=== PATIENT | male | born 1945 | race Caucasian/White ===

== ENCOUNTER 2023-05-16 10:21 | Emergency (ER) | payer OTHER, SELFPAY ==
[2023-05-16 10:29] VITALS: BP 132/65
[2023-05-16 10:54] VITALS: BMI 27.2
[2023-05-16 11:07] LABS: Glucose - Point of Care 126 mg/dl (70-99)
[2023-05-16 11:12] LABS: % Basophils 0.4 % (0-2); % Eosinophils 1.5 % (0-6); % Immature Granulocytes 0.3 % (0-0.5); % Lymphocytes 7.1 % (20.5-51.1); % Neutrophils 83.7 % (42.2-75.2); Absolute Basophils 0.1 10^3/uL (0-0.2); Absolute Eosinophils 0.2 10^3/uL (0-0.7); Hematocrit 36.8 % (39.0-52.0); Hemoglobin 12.3 g/dL (13.0-18.0); Mean Corp Hgb Conc. 33.4 g/dL (33.0-37.0); Mean Corpuscular Hgb 28.9 pg (27.0-31.0); Mean Corpuscular Volume 86.6 fL (80.0-94.0); Mean Platelet Volume 9.9 fL (7.4-10.4); Nucleated Red Blood Cells % 0 % (-); Platelet Count 217 10^3/uL (130-400); Red Blood Cell Count 4.25 10^6/uL (4.70-6.10); Red Cell Dist. Width 13.8 % (11.5-14.5); White Blood Cell Count 14.4 10^3/uL (4.8-10.8)
[2023-05-16] MEDS: NSS 500 IV (11:13)
[2023-05-16 11:23] LABS: ALT (SGPT) 22 U/L (0-50); AST (SGOT) 25 U/L (17-59); Albumin 3.7 g/dl (3.5-5.0); Alkaline Phosphatase 64 U/L (38-126); Blood Urea Nitrogen 14 mg/dl (9-20); Calcium 9.2 mg/dl (8.4-10.2); Carbon Dioxide 26 mmol/L (22-30); Chloride 108 mmol/L (98-107); Estimated Creatinine Clearance 84 ml/min; Glucose 115 mg/dl (70-99); Magnesium 1.8 mg/dl (1.6-2.3); Potassium 4.1 mmol/L (3.5-5.1); Sodium 138 mmol/L (135-145); Total Bilirubin 0.8 mg/dl (0.2-1.3); eGFR > 60.00
[2023-05-16 11:34] LABS: NT-proBNP 400 pg/ml; Troponin I < 0.012 ng/ml
[2023-05-16 12:26] VITALS: BP 135/62
[2023-05-16 13:00] VITALS: BP 144/72
--- NOTE | 2023-05-16 13:03 | ED.GENMED ---
History of Present Illness
<Flakito Carrington Jr., PA-C - Last Filed: 05/16/23 14:24>
General
Chief Complaint: Chest Pain
Source: patient
Exam Limitations: none
Time Seen by Provider: 05/16/23 10:35
Nursing documentation reviewed up to this point in time: agreed with
Travel History
Have you had any contact with someone who has COVID-19?: No
Do you have any symptoms of coronavirus? Fever > 100 degrees, chills, cough, shortness of breath, sore throat, loss of taste or smell, muscle aches, or headache?: No
History of Present Illness
History of Present Illness:
77-year-old male presenting to the emergency department today with concerns of central chest pain that started last night roughly 5 hours prior to arrival to the emergency department. Hurts worse with deep breaths no radiation no associated
shortness of breath no nausea vomiting diaphoresis. Denies similar symptoms in the past.
Past History
<Flakito Carrington Jr., PA-C - Last Filed: 05/16/23 14:24>
Past History
ED Past Medical History: HTN
ED Past Surgical History: Bowel resection (Tumor CA) and Orthopedic (Left hip replacement)
Social History
Tobacco: Non-smoker
Alcohol: Occasional
Personal: Single
Living: alone
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
Review of Systems
<Flakito Carrington Jr., PA-C - Last Filed: 05/16/23 14:24>
Review of Systems
Allergies reviewed?: Yes
All Other Systems: ROS reviewed and negative except as documented in HPI and ROS
Phy Exam
<Flakito Carrington Jr., PA-C - Last Filed: 05/16/23 14:24>
Physical Exam
Physical Exam:
GENERAL: Alert , in no apparent distress
EYE: pupils equal and reactive
NECK: Supple, no significant adenopathy.
ENT: o/p clr, mmm.
CARDIAC: Regular rate and rhythm .
LUNGS: Clear breath sounds bilaterally, no acute respiratory distress, no wheezes/rales/rhonchi
ABDOMEN: Soft, without focal tenderness, no r/g, no cvat
NEUROLOGICAL: Alert and oriented, no focal neuro deficits
SKIN: Warm and dry, skin intact.
MUSCULOSKELETAL: No edema, well perfused.
PSYCH: Normal and appropriate interaction.
Scores
<Flakito Carrington Jr., PA-C - Last Filed: 05/16/23 14:24>
Heart Score for Chest Pain Patients
STEMI patient?: No
History: Slightly or Non-Suspicious
ECG: Nonspecific Repolarization
Age: >/= 65 years
Risk Factors: 1 or 2 Risk Factors
Troponin: </= Normal Limit
Heart Score for Chest Pain Patients: 4
Heart Score Risk: 20.3% MACE over next 6 weeks
<Remi Hernandes DO - Last Filed: 05/16/23 14:27>
Heart Score for Chest Pain Patients
Heart Score for Chest Pain Patients: 4
Heart Score Risk: 20.3% MACE over next 6 weeks
Course
<Flakito Carrington Jr., PA-C - Last Filed: 05/16/23 14:24>
Orders/Labs/Results
Orders:
Orders
05/16/23 10:25
EKG [Electrocardiogram (*1)] Urgent
Reason for Study: Chest Pain
EKG- Treatment ONCE
05/16/23 11:00
CR Chest - 2 Views Urgent
Comment:
Reason For Exam: cp
05/16/23 11:01
Cardiac Monitoring- Treatment ONCE
05/16/23 11:02
Complete Blood Count/With Diff Urgent
Comprehensive Metabolic Panel Urgent
D-Dimer Urgent
Magnesium Urgent
NT-proBNP Urgent
Troponin I Urgent
05/16/23 11:11
0.9% Sodium Chloride 500 ml [Nss] 500 ml IV BOLUS
05/16/23 13:03
EKG [Electrocardiogram (*1)] Urgent
Reason for Study: Chest Pain
EKG- Treatment ONCE
05/16/23 13:18
Troponin I Urgent
Abnormal Lab Results
05/16/23 05/16/23
11:02 11:06
WBC 14.4 H 10^3/uL
(4.8-10.8)
RBC 4.25 L 10^6/uL
(4.70-6.10)
Hgb 12.3 L g/dL
(13.0-18.0)
Hct 36.8 L %
(39.0-52.0)
Absolute Neuts (auto) 12.0 H 10^3/uL
(1.4-6.5)
Absolute Lymphs (auto) 1.0 L 10^3/uL
(1.2-3.4)
Absolute Monos (auto) 1.0 H 10^3/uL
(0.1-0.6)
Neutrophils % 83.7 H %
(42.2-75.2)
Lymphocytes % 7.1 L %
(20.5-51.1)
D-Dimer 0.60 H ug/mlFEU
(0.00-0.50)
Chloride 108 H mmol/L
(98-107)
Glucose 115 H mg/dl
(70-99)
Total Protein 6.0 L g/dl
(6.3-8.2)
POC Glucose 126 H mg/dl
(70-99)
05/16/23 11:02
05/16/23 11:02
Vital Signs
Initial and Last Documented VS:
Initial Vital Signs
Temp Pulse Resp BP Pulse Ox
98.7 F 60 18 132/65 96
05/16/23 10:29 05/16/23 10:29 05/16/23 10:29 05/16/23 10:29 05/16/23 10:29
Last Documented Vital Signs
Temp Pulse Resp BP Pulse Ox
98.7 F 66 23 144/72 95
05/16/23 10:29 05/16/23 13:15 05/16/23 13:15 05/16/23 13:00 05/16/23 10:54
Paolalt;Remi Hernandes DO - Last Filed: 05/16/23 14:27>
Orders/Labs/Results
Orders:
Orders
05/16/23 10:25
EKG [Electrocardiogram (*1)] Urgent
Reason for Study: Chest Pain
EKG- Treatment ONCE
05/16/23 11:00
CR Chest - 2 Views Urgent
Comment:
Reason For Exam: cp
05/16/23 11:01
Cardiac Monitoring- Treatment ONCE
05/16/23 11:02
Complete Blood Count/With Diff Urgent
Comprehensive Metabolic Panel Urgent
D-Dimer Urgent
Magnesium Urgent
NT-proBNP Urgent
Troponin I Urgent
05/16/23 11:11
0.9% Sodium Chloride 500 ml [Nss] 500 ml IV BOLUS
05/16/23 13:03
EKG [Electrocardiogram (*1)] Urgent
Reason for Study: Chest Pain
EKG- Treatment ONCE
05/16/23 13:18
Troponin I Urgent
Abnormal Lab Results
05/16/23 05/16/23
11:02 11:06
WBC 14.4 H 10^3/uL
(4.8-10.8)
RBC 4.25 L 10^6/uL
(4.70-6.10)
Hgb 12.3 L g/dL
(13.0-18.0)
Hct 36.8 L %
(39.0-52.0)
Absolute Neuts (auto) 12.0 H 10^3/uL
(1.4-6.5)
Absolute Lymphs (auto) 1.0 L 10^3/uL
(1.2-3.4)
Absolute Monos (auto) 1.0 H 10^3/uL
(0.1-0.6)
Neutrophils % 83.7 H %
(42.2-75.2)
Lymphocytes % 7.1 L %
(20.5-51.1)
D-Dimer 0.60 H ug/mlFEU
(0.00-0.50)
Chloride 108 H mmol/L
(98-107)
Glucose 115 H mg/dl
(70-99)
Total Protein 6.0 L g/dl
(6.3-8.2)
POC Glucose 126 H mg/dl
(70-99)
05/16/23 11:02
05/16/23 11:02
Vital Signs
Initial and Last Documented VS:
Initial Vital Signs
Temp Pulse Resp BP Pulse Ox
98.7 F 60 18 132/65 96
05/16/23 10:29 05/16/23 10:29 05/16/23 10:29 05/16/23 10:29 05/16/23 10:29
Last Documented Vital Signs
Temp Pulse Resp BP Pulse Ox
98.7 F 66 23 144/72 95
05/16/23 10:29 05/16/23 13:15 05/16/23 13:15 05/16/23 13:00 05/16/23 10:54
<Flakito Carrington Jr., PA-C - Last Filed: 05/16/23 14:24>
MDM/Problems Addressed
MDM/Problems Addressed:
77-year-old male presenting to the emergency department today with concerns of midsternal chest discomfort starting overnight last night roughly 5 hours prior to arrival to the emergency department. No radiation of discomfort no nausea vomiting
diaphoresis no exertional component no shortness of breath. Does have some increased discomfort with deep breaths. Upon arrival here vital signs are normal. White count is very slightly elevated at 14.4. Dimer elevated to 0.60 but with
age-adjusted levels this is a negative level. Troponin negative EKG is unchanged from previous. Chest x-ray without emergent findings. Patient appears very low risk for ACS at this time very low risk for PE as well. No evidence of aortic
widening on chest x-ray. Patient generally well-appearing no acute distress throughout ER stay. Patient appears stable for follow-up with cardiology otherwise given strict return precautions for any worsening symptoms.
<Flakito Carrington Jr., PA-C - Last Filed: 05/16/23 14:24>
*Critical Care Note
Total Time (30-74mins, 75-104mins- exclusive of procedures): Not Applicable
ED Attending Note
<Flakito Carrington Jr., PA-C - Last Filed: 05/16/23 14:24>
-
Portions of this chart may have been created with voice recognition software.� Occasional wrong word or��sound alike� substitutions may have occurred due to the inherent limitations of voice recognition software.
<Remi Hernandes DO - Last Filed: 05/16/23 14:27>
ED Attending Note
Patient seen and examined by attending physician: Yes
I performed the substantive portion of visit, reviewed & personally made and approve the management plan that is documented in note by myself or MARIO.: Yes
ED Attending Note:
I agree with Ed's note
Patient awoke with chest pain early this morning. Pains been constant since then. No associated shortness of breath, diaphoresis, nausea. No radiation of the discomfort. Patient has no known coronary artery disease. No trauma. No recent travel.
General: Awake, Alert, Oriented X3. No acute distress.
Vitals: unremarkable
Head: Atraumatic
Eyes: Pupils equal, EOMI
Throat: Airway intact, no exudates
Neck: Trachea midline
Lungs: Clear and equal b/l
Heart: Regular rate, no murmurs
Abd: Soft, Nontender, No pulsatile mass
Neuro: Nonfocal
Skin: Warm, dry, no rash
Extremities: pulses equal b/l, no edema
EKG: Sinus bradycardia with nonspecific lateral changes but unchanged from previous EKG.
Patient has vague chest pain. Troponin is negative x 2. EKG x 2 showed no ischemic changes. They are not normal but there not any different than previous EKG. Patient stable for discharge home and follow-up with cardiology. Patient will be put
on the chest pain outlined.
Discharge Plan
Departure
Patient Disposition: Home (Routine Discharge)
Date of Disposition: 05/16/23
Time of Disposition: 14:22
Patient with high blood pressure during this ER visit?: No
Condition: Good
Covid-19: Not Applicable
Discharge Problem:
Chest pain
Instructions: Chest Pain CBC Follow Up
Prescriptions:
No Action
cyanocobalamin (vitamin B-12) 1,000 MCG tablet
1,000 mcg PO DAILY
finasteride 5 MG tablet
5 mg PO HS
rosuvastatin 5 MG tablet
5 mg PO DAILY
duloxetine 60 mg Capsule,Delayed Release(Dr/Ec)
60 mg PO HS
vitamin E
1 tab PO DAILY
pantoprazole 40 MG tablet,delayed release (DR/EC)
40 mg PO HS
ferrous sulfate [FeroSul] 325 MG tablet
325 mg PO DAILY
latanoprost 0.005 % Drops
1 drp BOTH EYES HS
acetaminophen [Tylenol 8 Hour] 650 mg Tablet Extended Release
1,300 mg PO Q8HPRN PRN (Reason: mild pain)
metoprolol succinate 25 mg Tablet Extended Release 24 Hr
25 mg PO BID
azelastine 137 mcg (0.1 %) Aerosol,[place]
2 spray INTRANASAL BID PRN (Reason: rhinitis)
fluticasone propionate 50 mcg/actuation [place],Suspension
2 spray INTRANASAL DAILY PRN (Reason: rhinitis)
aspirin 81 MG tablet,delayed release (DR/EC)
81 mg PO HS
Referrals:
Terence Dorado DO [Family Provider] -
Activity Restrictions/Additional Instructions:
You came to emergency department today with concerns of chest discomfort. Here you had a reassuring evaluation. Please follow closely with your cardiology team. Return to the emergency department for any worsening, new or concerning symptoms.
Interventions
Interventions:
*Risk Screen - Suicide Last Done: 05/16/23 10:30
*General Assessment Last Done: 05/16/23 10:30
*Neglect/Abuse Screening Last Done: 05/16/23 10:30
ED- Fall Risk Assessment Last Done: 05/16/23 10:54
*ED COVID-19 Vaccine History Last Done: 05/16/23 10:54
ED- Cardiac Assessment Last Done: 05/16/23 10:54
Discharge Date and Time
Print Language: AMHARIC
[2023-05-16 13:48] LABS: Troponin I < 0.012 ng/ml
[2023-05-16 14:00] VITALS: BP 135/80
== END 2023-05-16 14:40 | disposition home or self-care (01) ==
LOC: EMR 10:21
PROVIDERS: Physician Assistant; EMERGENCY PHYSICIAN Emergency Medicine; FAMILY PHYSICIAN Family Medicine
DX: R07.89 Other chest pain (principal)
CPT/HCPCS: 99285; 96360; 71046; 80053; 82962; 83735; 83880; 84484; 85025; 85379; 93005

== ENCOUNTER → 2023-05-22 13:15 | Outpatient (REF) | payer OTHER, SELFPAY | LOC: DHCBC MAIN 13:15 | PROVIDERS: ATTENDING PHYSICIAN Internal Medicine Cardiovascular Disease; FAMILY PHYSICIAN Internal Medicine | DX: R06.02 Shortness of breath (principal); I48.91 Unspecified atrial fibrillation | CPT/HCPCS: 93306 ==

== ENCOUNTER → 2023-05-23 08:56 | Outpatient (REF) | payer OTHER, SELFPAY | LOC: RCS 08:56 | PROVIDERS: ATTENDING PHYSICIAN Internal Medicine Cardiovascular Disease; FAMILY PHYSICIAN Family Medicine | DX: I48.91 Unspecified atrial fibrillation (principal) | CPT/HCPCS: 93005 ==

== ENCOUNTER 2023-05-25 13:56 | Emergency (ER) | payer OTHER, SELFPAY ==
[2023-05-25 14:01] VITALS: BP 132/80
[2023-05-25 14:41] VITALS: BP 151/95
--- NOTE | 2023-05-25 14:50 | ED.GENMED ---
History of Present Illness
General
Chief Complaint: Chest Pain
Source: patient
Exam Limitations: none
Time Seen by Provider: 05/25/23 14:37
Travel History
Have you had any contact with someone who has COVID-19?: No
Do you have any symptoms of coronavirus? Fever > 100 degrees, chills, cough, shortness of breath, sore throat, loss of taste or smell, muscle aches, or headache?: No
History of Present Illness
History of Present Illness:
See MDM
Past History
Past History
ED Past Medical History: Arrthythmia and HTN
ED Past Surgical History: Bowel resection (Tumor CA) and Orthopedic (Left hip replacement)
Social History
Tobacco: Non-smoker
Alcohol: Occasional
Personal: Single
Living: alone
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
Phy Exam
Physical Exam
Physical Exam:
See MDM
Scores
Heart Score for Chest Pain Patients
STEMI patient?: No
History: Slightly or Non-Suspicious
ECG: Normal
Age: >/= 65 years
Risk Factors: 1 or 2 Risk Factors
Troponin: </= Normal Limit
Heart Score for Chest Pain Patients: 3
Heart Score Risk: 2.5% MACE over next 6 weeks
Course
Orders/Labs/Results
Orders:
Orders
05/25/23 14:04
ECG [Electrocardiogram (*1)] Urgent
Reason for Study: Chest Pain
EKG- Treatment ONCE
05/25/23 14:46
Complete Blood Count/With Diff Urgent
Comprehensive Metabolic Panel Urgent
Troponin I Urgent
05/25/23 14:50
CT Chest Pe Study Urgent
Comment:
Reason For Exam: SOB, chest pain
0.9% Sodium Chloride 1000 ml [Nss] 1,000 ml IV BOLUS
05/25/23 17:07
Amoxicillin 875 mg/Clav 125 mg [Augmentin 875 mg/125 mg] 1 tablet PO NOW STA
Furosemide [Lasix] 20 mg PO NOW STA
Abnormal Lab Results
05/25/23
14:46
WBC 11.2 H 10^3/uL
(4.8-10.8)
RBC 3.91 L 10^6/uL
(4.70-6.10)
Hgb 11.4 L g/dL
(13.0-18.0)
Hct 34.1 L %
(39.0-52.0)
Absolute Neuts (auto) 9.2 H 10^3/uL
(1.4-6.5)
Absolute Lymphs (auto) 0.8 L 10^3/uL
(1.2-3.4)
Absolute Monos (auto) 0.9 H 10^3/uL
(0.1-0.6)
Neutrophils % 83.0 H %
(42.2-75.2)
Lymphocytes % 7.4 L %
(20.5-51.1)
Chloride 108 H mmol/L
(98-107)
Glucose 118 H mg/dl
(70-99)
Total Protein 6.1 L g/dl
(6.3-8.2)
05/25/23 14:46
05/25/23 14:46
Vital Signs
Initial and Last Documented VS:
Initial Vital Signs
Temp Pulse Resp BP Pulse Ox
98.5 F 98 20 132/80 95
05/25/23 14:01 05/25/23 14:01 05/25/23 14:01 05/25/23 14:01 05/25/23 14:01
Last Documented Vital Signs
Temp Pulse Resp BP Pulse Ox
98.5 F 106 17 175/107 96
05/25/23 14:01 05/25/23 16:16 05/25/23 16:16 05/25/23 17:01 05/25/23 15:45
MDM/Problems Addressed
Differential Diagnosis Includes:
HPI and MDM Narrative:
77-year-old male presenting with persistent chest pain and shortness of breath. He was seen over a week ago and diagnosed with A-fib. He is now on Eliquis. He follows with cardiology Dr. Castillo. He states that his symptoms are somewhat random
and sometimes worse with exertion. He also complains of dry mouth and dehydration.
Given his ongoing symptoms, will obtain CT to rule out PE versus dissection etiology. We did discuss that his symptoms could be related to A-fib but he is not a cardioversion candidate given that he has only been on Eliquis for less than 2 weeks.
We discussed the possibility of a negative workup in which we would blame his symptoms on A-fib. We discussed then talking to cardiology for possible admission for [facility] and cardioversion. Patient acknowledges this but states he has too many
responsibilities at home to be admitted
Physical exam
General: Well appearing and non-toxic
HEENT: protecting airway. Dry mucous membranes
Neck: appears supple
CV: No evidence of cyanosis. Normal rate, irregular rhythm
Resp: No accessory muscle use. Lungs clear
Abd: Non-distended
Extremities: No deformities
Neuro: alert
Psych: Normal affect
Skin: Intact
Problems Addressed including Acute and Chronic Conditions affecting care:
1. Intermittent chest pain
Acuity: acute
Prognosis: stable
Details: Likely in the setting of his A-fib. Given the recurrence, will repeat troponin and will obtain CT PE
2. A-fib
Acuity: acute
Prognosis: stable
Details: Will give IV fluids and continue to reassess. He is already on anticoagulation
Updates
CT negative for PE. There is concern for small pleural effusions and possible pneumonia. Given the elevated white blood cell count and his concern for worsening cough, will start Augmentin. Will start oral Lasix. I given offered and suggested
admission but patient wants to deliver his Saturday masses tomorrow. He will return Saturday or Saturday if symptoms are persistent
Differential Diagnosis (but not limited to): PE, symptomatic A-fib, aortic dissection
Testing considered: D-dimer but this was already performed last
Drug therapy (if applicable): OTC meds, please see d/c instruction regarding Rx drugs
Amount and/or Complexity of Data Reviewed
Clinical info obtained from: Patient
External data reviewed: Normal age-related D-dimer last week
Labs I independently reviewed (but not limited to): Mild leukocytosis, troponin negative
Radiology: The CT scan was personally and independently reviewed. In addition, official CT report reviewed.
Pulse Ox: not hypoxic
EKG independently reviewed: A-fib, normal axis, no STEMI
Bottle Capper: A-fib
Critical Care: N/A
Risk of Complication:
Social Determinants of health: Good social support
Discussed with other providers: N/A
Escalation of Care includes Admit/Obs: After being observed in the Emergency Department, pt stable for discharge.
Occasional wrong word or 'sound a like' substitutions may have occurred due to the inherent limitations of voice recognition software. Read the chart carefully and recognize, using context, where substitutions have occurred.
*Critical Care Note
Total Time (30-74mins, 75-104mins- exclusive of procedures): Not Applicable
ED Attending Note
-
Portions of this chart may have been created with voice recognition software.� Occasional wrong word or��sound alike� substitutions may have occurred due to the inherent limitations of voice recognition software.
Discharge Plan
Departure
Patient Disposition: Home (Routine Discharge)
Date of Disposition: 05/25/23
Time of Disposition: 17:14
Patient with high blood pressure during this ER visit?: Yes
Discharge Problem:
A-fib, Pleural effusion, PNA (pneumonia)
Instructions: BLOOD PRESSURE
Prescriptions:
New
amoxicillin-pot clavulanate 875-125 mg tablet
1 tab PO BID Qty: 14 0RF
furosemide [Lasix] 20 mg tablet
20 mg PO DAILY Qty: 5 0RF
No Action
cyanocobalamin (vitamin B-12) 1,000 MCG tablet
1,000 mcg PO DAILY
finasteride 5 MG tablet
5 mg PO HS
rosuvastatin 5 MG tablet
5 mg PO DAILY
duloxetine 60 mg Capsule,Delayed Release(Dr/Ec)
60 mg PO HS
vitamin E
1 tab PO DAILY
pantoprazole 40 MG tablet,delayed release (DR/EC)
40 mg PO HS
ferrous sulfate [FeroSul] 325 MG tablet
325 mg PO DAILY
latanoprost 0.005 % Drops
1 drp BOTH EYES HS
acetaminophen [Tylenol 8 Hour] 650 mg Tablet Extended Release
1,300 mg PO Q8HPRN PRN (Reason: mild pain)
metoprolol succinate 25 mg Tablet Extended Release 24 Hr
25 mg PO BID
azelastine 137 mcg (0.1 %) Aerosol,[place]
2 spray INTRANASAL BID PRN (Reason: rhinitis)
fluticasone propionate 50 mcg/actuation [place],Suspension
2 spray INTRANASAL DAILY PRN (Reason: rhinitis)
aspirin 81 MG tablet,delayed release (DR/EC)
81 mg PO HS
Referrals:
Terence Dorado DO [Family Provider] -
Activity Restrictions/Additional Instructions:
Please return for any worsening symptoms.
You may return at any time if you have further concerns.
Please follow up with your doctor at the first available appointment, preferably this week.
Thank you for choosing [facility].
Interventions
Interventions:
*ED COVID-19 Vaccine History Last Done: 05/25/23 14:01
ED- Cardiac Assessment Last Done: 05/25/23 14:38
Discharge Date and Time
Print Language: BENGALI
[2023-05-25] MEDS: NSS 1000 IV (14:52)
[2023-05-25 14:58] LABS: % Basophils 0.5 % (0-2); % Eosinophils 0.4 % (0-6); % Immature Granulocytes 0.3 % (0-0.5); % Lymphocytes 7.4 % (20.5-51.1); % Monocytes 8.4 % (1.7-9.3); Absolute Basophils 0.1 10^3/uL (0-0.2); Absolute Eosinophils 0.1 10^3/uL (0-0.7); Absolute Lymphocytes 0.8 10^3/uL (1.2-3.4); Absolute Monocytes 0.9 10^3/uL (0.1-0.6); Absolute Neutrophils 9.2 10^3/uL (1.4-6.5); Hematocrit 34.1 % (39.0-52.0); Hemoglobin 11.4 g/dL (13.0-18.0); Mean Corp Hgb Conc. 33.4 g/dL (33.0-37.0); Mean Corpuscular Hgb 29.2 pg (27.0-31.0); Mean Corpuscular Volume 87.2 fL (80.0-94.0); Mean Platelet Volume 9.2 fL (7.4-10.4); Nucleated Red Blood Cells % 0 % (-); Platelet Count 291 10^3/uL (130-400); Red Blood Cell Count 3.91 10^6/uL (4.70-6.10); Red Cell Dist. Width 13.7 % (11.5-14.5); White Blood Cell Count 11.2 10^3/uL (4.8-10.8)
[2023-05-25 15:00] VITALS: BP 167/96
[2023-05-25 15:36] LABS: ALT (SGPT) 34 U/L (0-50); AST (SGOT) 27 U/L (17-59); Albumin 3.6 g/dl (3.5-5.0); Alkaline Phosphatase 75 U/L (38-126); Blood Urea Nitrogen 17 mg/dl (9-20); Calcium 9.3 mg/dl (8.4-10.2); Carbon Dioxide 26 mmol/L (22-30); Chloride 108 mmol/L (98-107); Glucose 118 mg/dl (70-99); Potassium 4.4 mmol/L (3.5-5.1); Sodium 138 mmol/L (135-145); Total Bilirubin 0.8 mg/dl (0.2-1.3); Total Protein 6.1 g/dl (6.3-8.2); eGFR > 60.00
[2023-05-25 15:43] LABS: Troponin I < 0.012 ng/ml
[2023-05-25 16:00] VITALS: BP 179/107
[2023-05-25 17:01] VITALS: BP 175/107
[2023-05-25] MEDS: LASIX 20 MG PO (17:10)
[2023-05-25] MEDS: AUGMENTIN 875 MG/125 MG 1 TABLET PO (17:10)
== END 2023-05-25 17:35 | disposition home or self-care (01) ==
LOC: EMR 13:56
PROVIDERS: EMERGENCY PHYSICIAN Student in an Organized Health Care Education/Training Program; FAMILY PHYSICIAN Family Medicine
DX: I48.91 Unspecified atrial fibrillation (principal); J90 Pleural effusion, not elsewhere classified; J18.9 Pneumonia, unspecified organism; I10 Essential (primary) hypertension; Z79.01 Long term (current) use of anticoagulants
CPT/HCPCS: 99285; 96360; 71275; 80053; 84484; 85025; 93005; Q9967

== ENCOUNTER → 2023-05-31 11:01 | Outpatient (REF) | payer OTHER, SELFPAY | LOC: DHCBC/DCA 11:01 | PROVIDERS: ATTENDING PHYSICIAN Internal Medicine Cardiovascular Disease; FAMILY PHYSICIAN Family Medicine | DX: R07.89 Other chest pain (principal); I48.91 Unspecified atrial fibrillation | CPT/HCPCS: 78452; 93017; A9500; J2785 ==

== ENCOUNTER → 2023-07-30 | Outpatient (REF) | payer OTHER, SELFPAY | LOC: DHSLP | PROVIDERS: ATTENDING PHYSICIAN Internal Medicine; FAMILY PHYSICIAN Family Medicine | DX: G47.33 Obstructive sleep apnea (adult) (pediatric) (principal) | CPT/HCPCS: 95800 ==

== ENCOUNTER → 2023-08-12 09:49 | Outpatient (REF) | payer OTHER, SELFPAY | LOC: RAD 09:49 | PROVIDERS: ATTENDING PHYSICIAN Surgery Vascular Surgery; FAMILY PHYSICIAN Family Medicine | DX: I65.23 Occlusion and stenosis of bilateral carotid arteries (principal) | CPT/HCPCS: 93880 ==

== ENCOUNTER 2023-11-23 10:39 | Emergency (ER) | payer OTHER, SELFPAY ==
[2023-11-23 10:42] VITALS: BP 139/81
--- NOTE | 2023-11-23 11:00 | EDRN ---
Mackenzie Cesar [employer] SAL[employer] AGENT in to see pt at this time.
--- NOTE | 2023-11-23 11:05 | ED.MUSCINJ ---
HPI-Injury
General
Chief Complaint: Musculo-Skeletal Complaint
Source: patient
Exam Limitations: none
Time Seen by Provider: 11/23/23 10:59
Nursing documentation reviewed up to this point in time: agreed with
History of Present Illness-Injury
Initial Injury comments:
77 yo male with h/o a fib on Eliquis, HLD, TURP and , Fe deficient anemia, colon CA with resection 2006, presents 6 days after a fall with right rib pain. He was walking down a grassy slope with his dog, tripped over raise in the ground where
grass met the asphalt and landed with right elbow flexed and arm across his chest. The right ribs have become increasingly more painful since. Denies SOB, it hurts to breathe. Did hit forehead and has a mild abrasion mid upper forehead that is
healing well. No hx LOC, denies H/A, change in vision, weakness, numbness/tingling in extremities.
Past History
Past History
ED Past Medical History: Arrthythmia, HTN, Hypercholesterolemia and Other (seasonal allergies which causes him to cough causing significant right rib pain)
ED Past Surgical History: Bowel resection (Tumor CA), Orthopedic (Left hip replacement) and Urological
Social History
Tobacco: Non-smoker
Alcohol: Occasional
Personal: Single
Living: alone
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
Review of Systems
Review of Systems
Allergies reviewed?: Yes
All Other Systems: ROS reviewed and negative except as documented in HPI and ROS
Constitutional: Denies fever
Respiratory: Reports cough (due to allergies) and trouble breathing
Cardiac: Denies syncope
ABD/GI: Denies abdominal pain
: Denies dysuria or incontinence
Musculoskeletal: Reports other (right rib pain); Denies neck pain or back pain
Skin: Reports other (scrape mid forehead)
Neurological: Reports no symptoms
Phy Exam
Physical Exam
Physical Exam:
GENERAL: No acute distress. A&Ox3.
CONSTITUTIONAL: Afebrile.
EYES: PERRL, conjunctivae normal
Neck: Supple
ENMT: moist mucus membranes
RESPIRATORY: Regular respirations, nonlabored, lungs clear.
CARDIOVASCULAR: Regular rate and rhythm, no murmurs, no rubs.
GI: Soft, nontender, normal BS
MUSCULOSKELETAL: Moves with ease. Well perfused.
SKIN: Warm, dry, pink
PSYCH: Normal mood and affect. Well kept, interactive and appropriate
NEUROLOGIC: Awake, alert and oriented. No focal neurological deficits. Ambulates well with steady gait
Injury Course
Orders/Labs/Results
Orders:
Orders
11/23/23 11:00
Ribs, Right 3 View W/PA Chest [CR Ribs-right 3 Vw W/pa Chest*] Urgent
Comment:
Reason For Exam: pain after fall
MDM/Problems Addressed
Differential Diagnosis Includes:
fracture rib, bruised rib, hemothorax.
MDM/Problems Addressed:
77 yo male with h/o a fib on [facility], HLD, TURP and , Fe deficient anemia, colon CA with resection 2006, presents 6 days after a fall with right rib pain. He was walking down a grassy slope with his dog, tripped over raise in the ground where
grass met the asphalt and landed with right elbow flexed and arm across his chest. The right ribs have become increasingly more painful since. Denies SOB, it hurts to breathe. Did hit forehead and has a mild abrasion mid upper forehead that is
healing well. No hx LOC, denies H/A, change in vision, weakness, numbness/tingling in extremities.
Pt has no neuro deficits, one week has passed no indication at this time for Head CT on [employer]
11:30 a.m.
R ribs w PA chest xray initially read by this examiner: ? minimally displaced distal 9th rib fx, no hemo or pneumothorax
12:15 PM:
Radiology report read: IMPRESSION:
No displaced right rib fracture. Small irregularity along the lateral right ninth rib, possible nondisplaced fracture.
Small right pleural effusion with right basilar opacity, possible atelectasis however pneumonia could appear similar. No pneumothorax.
Chronic T12 compression deformity.
Patient fitted for a rib belt which she states feels much more comfortable. Instructed on use of incentive spirometer.
*Critical Care Note
Total Time (30-74mins, 75-104mins- exclusive of procedures): Not Applicable
ED Attending Note
-
Portions of this chart may have been created with voice recognition software.� Occasional wrong word or��sound alike� substitutions may have occurred due to the inherent limitations of voice recognition software.
Discharge Plan
Departure
Patient Disposition: Home (Routine Discharge)
Date of Disposition: 11/23/23
Time of Disposition: 12:17
Patient with high blood pressure during this ER visit?: No
Condition: Good
Discharge Problem:
Rib pain on right side, Rib contusion
Instructions: Rib Fracture or Bruised Rib ED
Prescriptions:
No Action
cyanocobalamin (vitamin B-12) 1,000 MCG tablet
1,000 mcg PO DAILY
finasteride 5 MG tablet
5 mg PO HS
rosuvastatin 5 MG tablet
5 mg PO DAILY
duloxetine 60 mg Capsule,Delayed Release(Dr/Ec)
60 mg PO HS
vitamin E
1 tab PO DAILY
pantoprazole 40 MG tablet,delayed release (DR/EC)
40 mg PO HS
ferrous sulfate [FeroSul] 325 MG tablet
325 mg PO DAILY
latanoprost 0.005 % Drops
1 drp BOTH EYES HS
acetaminophen [Tylenol 8 Hour] 650 mg Tablet Extended Release
1,300 mg PO Q8HPRN PRN (Reason: mild pain)
metoprolol succinate 25 mg Tablet Extended Release 24 Hr
25 mg PO BID
azelastine 137 mcg (0.1 %) Aerosol,[place]
2 spray INTRANASAL BID PRN (Reason: rhinitis)
fluticasone propionate 50 mcg/actuation [place],Suspension
2 spray INTRANASAL DAILY PRN (Reason: rhinitis)
aspirin 81 MG tablet,delayed release (DR/EC)
81 mg PO HS
amoxicillin-pot clavulanate 875-125 mg tablet
1 tab PO BID Qty: 14 0RF
furosemide [Lasix] 20 mg tablet
20 mg PO DAILY Qty: 5 0RF
Referrals:
Terence Dorado, DO [Family Provider] - As needed
Activity Restrictions/Additional Instructions:
As we discussed, wear the rib belt if it helps.
Take 10 good deep breaths on the breathing machine every hour while while awake while you are wearing the rib belt to avoid pneumonia.
Tylenol as needed for pain.
Return here immediately for trouble breathing, shortness of breath, worsening pain or feeling worse in any way.
Interventions
Interventions:
*Risk Screen - Suicide Last Done: 11/23/23 10:42
*General Assessment Last Done: 11/23/23 10:42
*Neglect/Abuse Screening Last Done: 11/23/23 10:42
ED- Fall Risk Assessment Last Done: 11/23/23 11:49
*ED COVID-19 Vaccine History Last Done: 11/23/23 11:49
*Nursing Disposition Last Done: 11/23/23 12:34
ED-Musculoskeletal Assessment Last Done: 11/23/23 11:49
Discharge Date and Time
Discharge Date/Time: 11/23/23 12:36
Print Language: NORWEGIAN
--- NOTE | 2023-11-23 11:47 | EDRN ---
Pt states he fell walking down a hill and tripped on area where pavement was uneven onto his R side.
[2023-11-23 11:49] VITALS: BMI 26.5
[2023-11-23 11:54] VITALS: BP 145/76
--- NOTE | 2023-11-23 11:57 | EDRN ---
Discussed splinting w/demo and return demo.
--- NOTE | 2023-11-23 12:07 | EDRN ---
Pt administered IS w/ great return demo
== END 2023-11-23 12:36 | disposition home or self-care (01) ==
LOC: EMR 10:39
PROVIDERS: EMERGENCY PHYSICIAN Emergency Medicine; FAMILY PHYSICIAN Family Medicine
DX: S20.211A Contusion of right front wall of thorax, initial encounter (principal); R07.89 Other chest pain; S00.81XA Abrasion of other part of head, initial encounter; W10.2XXA Fall (on)(from) incline, initial encounter; Y93.K1 Activity, walking an animal; I10 Essential (primary) hypertension; E78.00 Pure hypercholesterolemia, unspecified; D50.9 Iron deficiency anemia, unspecified; M48.54XA Collapsed vertebra, not elsewhere classified, thoracic region, initial encounter for fracture; Z79.01 Long term (current) use of anticoagulants; Z98.0 Intestinal bypass and anastomosis status; Z96.642 Presence of left artificial hip joint; Z85.038 Personal history of other malignant neoplasm of large intestine; Z91.018 Allergy to other foods
CPT/HCPCS: 99283; 71101

== ENCOUNTER → 2023-12-27 11:23 | Outpatient (REF) | payer OTHER, SELFPAY | LOC: HWRAD 11:23 | PROVIDERS: ATTENDING PHYSICIAN Nurse Practitioner Family; FAMILY PHYSICIAN Family Medicine | DX: S09.90XA Unspecified injury of head, initial encounter (principal) | CPT/HCPCS: 70450 ==

== ENCOUNTER 2024-05-12 07:43 | Emergency (ER) | payer OTHER, SELFPAY ==
[2024-05-12 07:47] VITALS: BP 179/86
--- NOTE | 2024-05-12 08:07 | ED.GENMED ---
History of Present Illness
General
Chief Complaint: Fall
Source: patient
Exam Limitations: none
Time Seen by Provider: 05/12/24 07:52
Nursing documentation reviewed up to this point in time: agreed with
History of Present Illness
History of Present Illness:
78-year-old male with a past medical history of hypertension, hyperlipidemia, atrial fibrillation on Eliquis, BPH who presents to the emergency room for evaluation of right rib pain. Patient reports that he was walking his dog yesterday and tripped
and fell and landed on his right ribs. He says he did not hit his head or lose consciousness. He says he has had pain in his right chest wall/ribs since. Pain is worse with movement, coughing, breathing. No relieving factors noted. He denies
any other injuries�denies headache, neck pain, back pain, abdominal pain, pain in his extremities. He is on Eliquis as above.
Past History
Past History
ED Past Medical History: Arrthythmia, HTN, Hypercholesterolemia and Other (seasonal allergies which causes him to cough causing significant right rib pain)
ED Past Surgical History: Bowel resection (Tumor CA), Orthopedic (Left hip replacement) and Urological
Social History
Tobacco: Non-smoker
Alcohol: Occasional
Personal: Single
Living: alone
Employment: Employed ([employer])
Review of Systems
Review of Systems
All Other Systems: ROS reviewed and negative except as documented in HPI and ROS
Respiratory: Denies trouble breathing
Cardiac: Reports chest pain (Rib pain)
ABD/GI: Denies abdominal pain, nausea or vomiting
Musculoskeletal: Denies neck pain or back pain
Neurological: Denies dizzy or headache
Phy Exam
Physical Exam
Physical Exam:
General: Awake, alert, oriented x3; no acute distress
Head: Normocephalic, atraumatic
Eyes: Conjunctiva normal, EOMI, pupils equal round and reactive to light bilaterally
Throat: Airway intact, handling secretions
Neck: Trachea midline, no cervical spine tenderness, full range of motion
Back: No signs of trauma to the back or flank and no tenderness in the thoracic or lumbar spine; he does have some posterior lateral right chest wall/rib tenderness but no bruising
Lungs: Clear to auscultation bilaterally, no wheezing, rales, rhonchi
Heart: Regular rate and rhythm, no murmurs, gallops, or rubs; right posterior lateral rib tenderness but no bruising, no crepitus
Abd: Soft, non distended, nontender to deep palpation
Neuro: No gross deficits
Extremities: Atraumatic, no tenderness, moving all extremities through full range of motion comfortably
Scores
Heart Failure Risk
Heart Failure Risk Score: Not Applicable
Heart Score for Chest Pain Patients
STEMI patient?: Not applicable
Withdrawal Assessment of Alcohol
Withdrawal Assessment Completed?: Not applicable
Course
Orders/Labs/Results
Orders:
Orders
05/12/24 08:04
Acetaminophen [Tylenol] 1,000 mg PO NOW STA
Oxycodone [Roxicodone] 5 mg PO NOW STA
05/12/24 08:06
CT Chest W/o Iv Contrast Urgent
Comment:
Reason For Exam: right rib pain s/p fall
05/12/24 08:08
Electrocardiogram (*1) Urgent
Reason for Study: Chest Pain
EKG- Treatment ONCE
Vital Signs
Initial and Last Documented VS:
Initial Vital Signs
Temp Pulse Resp BP Pulse Ox
36.6 C 57 16 179/86 98
05/12/24 07:47 05/12/24 07:47 05/12/24 07:47 05/12/24 07:47 05/12/24 07:47
Last Documented Vital Signs
Temp Pulse Resp BP Pulse Ox
36.6 C 60 16 168/88 98
05/12/24 07:47 05/12/24 08:00 05/12/24 07:47 05/12/24 09:00 05/12/24 09:00
MDM/Problems Addressed
Differential Diagnosis Includes:
Rib fracture, bruised ribs, hemothorax/pneumothorax
MDM/Problems Addressed:
78-year-old male presents for evaluation of chest wall pain after fall yesterday. He is on Eliquis. No head strike and no other complaints. With no head strike reported, no signs of head trauma and patient nearly 24 hours removed from the fall
with normal mental status and exam no indication for emergent neuroimaging. Will check CT chest to rule out fracture. Will treat symptomatically. Reassess after the above.
CT chest shows right eighth rib fracture no other acute posttraumatic injuries. Patient's pain is well-controlled on clinical reassessment. Stable for discharge with pain control. We discussed incidental findings on CT (copy of report was given)
and elevated blood pressure�will follow-up with primary. All questions answered.
Chronic conditions affecting care:
A-fib on Eliquis complicates fall
*Radiology
Radiology exam reviewed: radiology read reviewed
*Pulse Oximetry
Patient hypoxic: no
*EKG
Interpreted by ED Provider?: Yes
Heart Rate: 60
Rate: normal
Rhythm: sinus
[place]: normal axis
Interval: normal interval
QRS Pattern: normal QRS
Ischemia: non-specific ST changes
*Critical Care Note
Total Time (30-74mins, 75-104mins- exclusive of procedures): Not Applicable
Data Reviewed
Source: patient and records
Further Testing Considered But Not Given:
Considered CT head
Patient Management
Discussion with other providers: Radiologist (Discussed with radiologist)
ED Attending Note
-
Portions of this chart may have been created with voice recognition software.� Occasional wrong word or��sound alike� substitutions may have occurred due to the inherent limitations of voice recognition software.
Discharge Plan
Departure
Patient Disposition: Home (Routine Discharge)
Date of Disposition: 05/12/24
Time of Disposition: 09:12
Patient with high blood pressure during this ER visit?: Yes
Discharge Problem:
Fracture of rib
Instructions: Rib injury in adults
Prescriptions:
New
oxycodone 5 mg tablet
5 mg PO Q8H PRN (Reason: Pain) Qty: 15 0RF
No Action
cyanocobalamin (vitamin B-12) 1,000 MCG tablet
1,000 mcg PO DAILY
finasteride 5 MG tablet
5 mg PO HS
rosuvastatin 5 MG tablet
5 mg PO DAILY
duloxetine 60 mg Capsule,Delayed Release(Dr/Ec)
60 mg PO HS
vitamin E
1 tab PO DAILY
pantoprazole 40 MG tablet,delayed release (DR/EC)
40 mg PO HS
ferrous sulfate [FeroSul] 325 MG tablet
325 mg PO DAILY
latanoprost 0.005 % Drops
1 drp BOTH EYES HS
acetaminophen [Tylenol 8 Hour] 650 mg Tablet Extended Release
1,300 mg PO Q8HPRN PRN (Reason: mild pain)
metoprolol succinate 25 mg Tablet Extended Release 24 Hr
25 mg PO BID
azelastine 137 mcg (0.1 %) Aerosol,[place]
2 spray INTRANASAL BID PRN (Reason: rhinitis)
fluticasone propionate 50 mcg/actuation [place],Suspension
2 spray INTRANASAL DAILY PRN (Reason: rhinitis)
aspirin 81 MG tablet,delayed release (DR/EC)
81 mg PO HS
amoxicillin-pot clavulanate 875-125 mg tablet
1 tab PO BID Qty: 14 0RF
furosemide [Lasix] 20 mg tablet
20 mg PO DAILY Qty: 5 0RF
Referrals:
Terence Dorado DO [Family Provider] - Follow up in 5-7 days
Activity Restrictions/Additional Instructions:
Thank you for visiting the Emergency Department at [facility].
1. Please schedule a follow up appointment as directed. Call first thing tomorrow morning to make an appointment.
2. If indicated, please take your medications as instructed and indicated on discharge paperwork.
3. If any of your symptoms do not improve, or persist, or become more severe within 6-12 hours, please return to the emergency department for further care.
4. Please return to the emergency department if you develop a headache, neck pain/stiffness, fever greater than 100.4F, chest pain, shortness of breath, persistent nausea, vomiting, slurred speech, difficulty walking, numbness/tingling, weakness,
signs of infection or any other symptoms that are worrisome to you.
Please call [phone] if you have any questions.
Interventions
Interventions:
*Risk Screen - Suicide Last Done: 05/12/24 07:47
*General Assessment Last Done: 05/12/24 08:20
*Neglect/Abuse Screening Last Done: 05/12/24 07:47
*ED COVID-19 Vaccine History Last Done: 05/12/24 08:20
ED- Neurological Assessment Last Done: 05/12/24 09:03
Discharge Date and Time
Print Language: KYRGYZ
[2024-05-12 08:16] VITALS: BMI 27.4
[2024-05-12] MEDS: TYLENOL 1000 MG PO (08:17)
[2024-05-12] MEDS: ROXICODONE 5 MG PO (08:18)
[2024-05-12 08:36] VITALS: BP 192/94
[2024-05-12 09:00] VITALS: BP 168/88
[2024-05-12 09:44] VITALS: BP 168/88
== END 2024-05-12 09:48 | disposition home or self-care (01) ==
LOC: EMR 07:43
PROVIDERS: EMERGENCY PHYSICIAN Emergency Medicine; FAMILY PHYSICIAN Family Medicine
DX: S22.31XA Fracture of one rib, right side, initial encounter for closed fracture (principal); W01.0XXA Fall on same level from slipping, tripping and stumbling without subsequent striking against object, initial encounter; I10 Essential (primary) hypertension; E78.00 Pure hypercholesterolemia, unspecified; I48.91 Unspecified atrial fibrillation; N40.0 Benign prostatic hyperplasia without lower urinary tract symptoms; Z79.01 Long term (current) use of anticoagulants
CPT/HCPCS: 99284; 71250; 93005

== ENCOUNTER 2024-07-01 10:59 | Emergency (ER) | payer OTHER, SELFPAY ==
[2024-07-01 11:08] VITALS: BP 148/73
--- NOTE | 2024-07-01 11:31 | ED.GENMED ---
History of Present Illness
General
Chief Complaint: Chest Pain
Source: patient
Time Seen by Provider: 07/01/24 11:08
History of Present Illness
History of Present Illness:
78-year-old male presents to the emergency room complaining of shortness of breath and chest discomfort with exertion. Patient had a fall about 6 weeks ago. He suffered a fractured rib on the right. Patient was having discomfort in that area
which improved over time. Recently he began having pain in that general area again but this time with exertion. It is associated with shortness of breath. He he has a change in his cough which is now more productive. He denies any fever or
chills though he sometimes feels like he breaks out into a sweat. This is not related to exertion. Currently the patient is comfortable while lying in the gurney but he was having symptoms just prior to coming to the emergency room while packing
some boxes.
Past History
Past History
ED Past Medical History: Arrthythmia, HTN, Hypercholesterolemia and Other (seasonal allergies which causes him to cough causing significant right rib pain)
ED Past Surgical History: Bowel resection (Tumor CA), Orthopedic (Left hip replacement) and Urological
Social History
Tobacco: Non-smoker
Alcohol: Occasional
Personal: Single
Living: alone
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
Phy Exam
Physical Exam
Physical Exam:
General: Awake, Alert, Oriented X3. No acute distress.
Vitals: unremarkable
Head: Atraumatic
Eyes: Pupils equal, EOMI
Throat: Airway intact, no exudates
Neck: Trachea midline
Lungs: Crackles right lower lung field
Heart: Regular rate, no murmurs
Abd: Soft, Nontender, No pulsatile mass
Neuro: Nonfocal
Skin: Warm, dry, no rash
Extremities: pulses equal b/l, no edema
Scores
Heart Score for Chest Pain Patients
STEMI patient?: No
History: Moderately Suspicious
ECG: Nonspecific Repolarization
Age: >/= 65 years
Risk Factors: 1 or 2 Risk Factors
Troponin: </= Normal Limit
Heart Score for Chest Pain Patients: 5
Heart Score Risk: 20.3% MACE over next 6 weeks
Course
Orders/Labs/Results
Orders:
Orders
07/01/24 11:00
Electrocardiogram (*1) Urgent
Reason for Study: Chest Pain
EKG- Treatment ONCE
07/01/24 11:30
Cardiac Monitoring- Treatment ONCE
Aspirin Chewable [Low Strength Aspirin] 324 mg PO NOW STA
CR Chest - 2 Views Urgent
Comment:
Reason For Exam: chest pain, sob
07/01/24 11:40
Basic Metabolic Panel Urgent
Complete Blood Count/With Diff Urgent
Troponin I Urgent
07/01/24 12:31
CT Chest PE Study Urgent
Comment:
Reason For Exam: r sided pleuritic chest pain
07/01/24 13:41
Troponin I Urgent
Abnormal Lab Results
07/01/24
11:40
WBC 13.8 H 10^3/uL
(4.8-10.8)
RBC 4.40 L 10^6/uL
(4.70-6.10)
MCHC 32.7 L g/dL
(33.0-37.0)
Absolute Neuts (auto) 10.8 H 10^3/uL
(1.4-6.5)
Absolute Monos (auto) 1.5 H 10^3/uL
(0.1-0.6)
Neutrophils % 78.6 H %
(42.2-75.2)
Lymphocytes % 9.6 L %
(20.5-51.1)
Monocytes % 10.9 H %
(1.7-9.3)
BUN 21 H mg/dl
(9-20)
Glucose 113 H mg/dl
(70-99)
07/01/24 11:40
07/01/24 11:40
Vital Signs
Initial and Last Documented VS:
Initial Vital Signs
Temp Pulse Resp Pulse Ox
97.5 F 67 16 98
07/01/24 11:07 07/01/24 11:07 07/01/24 11:07 07/01/24 11:07
Last Documented Vital Signs
Temp Pulse Resp BP Pulse Ox
97.5 F 93 25 144/71 96
07/01/24 11:07 07/01/24 14:30 07/01/24 14:30 07/01/24 14:00 07/01/24 14:30
MDM/Problems Addressed
Differential Diagnosis Includes:
pneumonia, PE, angina, acs
MDM/Problems Addressed:
Patient presents with right sided chest pain that seem worse while packing. EKG shows no acute ischemic changes. Troponins normal x 2. CT of the chest shows tiny left pleural effusion. No acute PE or other acute findings. Patient has been
pain-free here in the emergency room. No evidence for an acute process at this time. Will put him on the chest pain hotline with [facility] cardiology who he sees as an outpatient. Stable for discharge but understands to return if pain returns
or he feels like anything is getting worse
*Radiology
Radiology exam reviewed: radiology read reviewed
*Pulse Oximetry
Patient hypoxic: no
*EKG
Heart Rate: 93
Rate: normal
Rhythm: sinus
[place]: normal axis
Interval: normal interval
QRS Pattern: normal QRS
Ischemia: non-specific ST changes
*Supervisor [employer] Interpretation
Rate: normal
Interpretation: normal
Heart Rate: 93
Rhythm: sinus
*Critical Care Note
Total Time (30-74mins, 75-104mins- exclusive of procedures): Not Applicable
ED Attending Note
-
Portions of this chart may have been created with voice recognition software.� Occasional wrong word or��sound alike� substitutions may have occurred due to the inherent limitations of voice recognition software.
Discharge Plan
Departure
Patient Disposition: Home (Routine Discharge)
Date of Disposition: 07/01/24
Time of Disposition: 14:36
Patient with high blood pressure during this ER visit?: Yes
Condition: Good
Discharge Problem:
Chest pain
Instructions: Chest Pain CBC Follow Up, BLOOD PRESSURE
Prescriptions:
No Action
cyanocobalamin (vitamin B-12) 1,000 MCG tablet
1,000 mcg PO DAILY
finasteride 5 MG tablet
5 mg PO HS
rosuvastatin 5 MG tablet
5 mg PO DAILY
duloxetine 60 mg Capsule,Delayed Release(Dr/Ec)
60 mg PO HS
vitamin E
1 tab PO DAILY
pantoprazole 40 MG tablet,delayed release (DR/EC)
40 mg PO HS
ferrous sulfate [FeroSul] 325 MG tablet
325 mg PO DAILY
latanoprost 0.005 % Drops
1 drp BOTH EYES HS
acetaminophen [Tylenol 8 Hour] 650 mg Tablet Extended Release
1,300 mg PO Q8HPRN PRN (Reason: mild pain)
metoprolol succinate 25 mg Tablet Extended Release 24 Hr
25 mg PO BID
azelastine 137 mcg (0.1 %) Aerosol,[place]
2 spray INTRANASAL BID PRN (Reason: rhinitis)
fluticasone propionate 50 mcg/actuation [place],Suspension
2 spray INTRANASAL DAILY PRN (Reason: rhinitis)
aspirin 81 MG tablet,delayed release (DR/EC)
81 mg PO HS
amoxicillin-pot clavulanate 875-125 mg tablet
1 tab PO BID Qty: 14 0RF
furosemide [Lasix] 20 mg tablet
20 mg PO DAILY Qty: 5 0RF
oxycodone 5 mg tablet
5 mg PO Q8H PRN (Reason: Pain) Qty: 15 0RF
Referrals:
Terence Dorado DO [Family Provider] -
Interventions
Interventions:
*Risk Screen - Suicide Last Done: 07/01/24 11:07
*General Assessment Last Done: 07/01/24 14:16
*Neglect/Abuse Screening Last Done: 07/01/24 11:07
*ED- Fall Risk Assessment Last Done: 07/01/24 14:16
*ED COVID-19 Vaccine History Last Done: 07/01/24 12:47
*Nursing Disposition Last Done: 07/01/24 14:51
ED- Cardiac Assessment Last Done: 07/01/24 12:02
Discharge Date and Time
Discharge Date/Time: 07/01/24 14:52
Print Language: ERITREAN
[2024-07-01] MEDS: LOW STRENGTH ASPIRIN 324 MG PO (11:37)
[2024-07-01 11:45] VITALS: BP 136/75
[2024-07-01 11:53] LABS: % Basophils 0.2 % (0-2); % Eosinophils 0.4 % (0-6); % Immature Granulocytes 0.3 % (0-0.5); % Lymphocytes 9.6 % (20.5-51.1); % Monocytes 10.9 % (1.7-9.3); % Neutrophils 78.6 % (42.2-75.2); Absolute Eosinophils 0.1 10^3/uL (0-0.7); Absolute Lymphocytes 1.3 10^3/uL (1.2-3.4); Absolute Monocytes 1.5 10^3/uL (0.1-0.6); Absolute Neutrophils 10.8 10^3/uL (1.4-6.5); Hematocrit 39.7 % (39.0-52.0); Mean Corp Hgb Conc. 32.7 g/dL (33.0-37.0); Mean Corpuscular Hgb 29.5 pg (27.0-31.0); Mean Corpuscular Volume 90.2 fL (80.0-94.0); Mean Platelet Volume 9.8 fL (7.4-10.4); Nucleated Red Blood Cells % 0 % (-); Platelet Count 251 10^3/uL (130-400); Red Cell Dist. Width 13.6 % (11.5-14.5); White Blood Cell Count 13.8 10^3/uL (4.8-10.8)
[2024-07-01 12:04] VITALS: BP 143/76
[2024-07-01 12:18] LABS: Troponin I < 0.012 ng/ml
[2024-07-01 12:29] LABS: Blood Urea Nitrogen 21 mg/dl (9-20); Calcium 9.3 mg/dl (8.4-10.2); Carbon Dioxide 25 mmol/L (22-30); Chloride 107 mmol/L (98-107); Glucose 113 mg/dl (70-99); Sodium 137 mmol/L (135-145); eGFR > 60.00
[2024-07-01 13:10] VITALS: BP 125/71
[2024-07-01 14:00] VITALS: BP 144/71
[2024-07-01 14:13] LABS: Troponin I < 0.012 ng/ml
== END 2024-07-01 14:52 | disposition home or self-care (01) ==
LOC: EMR 10:59
PROVIDERS: EMERGENCY PHYSICIAN Emergency Medicine; FAMILY PHYSICIAN Family Medicine; OTHER PHYSICIAN Internal Medicine Cardiovascular Disease
DX: R07.89 Other chest pain (principal); R06.02 Shortness of breath; R05.9 Cough, unspecified; J90 Pleural effusion, not elsewhere classified; I10 Essential (primary) hypertension; E78.00 Pure hypercholesterolemia, unspecified; Z91.81 History of falling; Z98.0 Intestinal bypass and anastomosis status; Z96.642 Presence of left artificial hip joint; Z85.038 Personal history of other malignant neoplasm of large intestine
CPT/HCPCS: 99285; 71046; 71275; 80048; 84484; 85025; 93005; Q9967

== ENCOUNTER → 2024-07-13 12:43 | Outpatient (REF) | payer OTHER, SELFPAY | LOC: RCS 12:43 | PROVIDERS: ATTENDING PHYSICIAN Nurse Practitioner; FAMILY PHYSICIAN Family Medicine | DX: I48.0 Paroxysmal atrial fibrillation (principal); R07.89 Other chest pain; R29.898 Other symptoms and signs involving the musculoskeletal system | CPT/HCPCS: 93306 ==

== ENCOUNTER → 2024-10-01 11:06 | Outpatient (REF) | payer OTHER, SELFPAY | LOC: RAD 11:06 | PROVIDERS: ATTENDING PHYSICIAN Surgery Vascular Surgery; FAMILY PHYSICIAN Family Medicine | DX: I65.23 Occlusion and stenosis of bilateral carotid arteries (principal) | CPT/HCPCS: 93880 ==